=== PATIENT | male | born 1965 | race Two or more races ===

== ENCOUNTER 2021-03-31 20:16 | Inpatient (IN) | payer BC, OTHER ==
[~2021-03-31 20:16] MED LIST: LORazepam 2 MG TABLET PO SCH
[2021-03-31 22:04] VITALS: BMI 24.5
[2021-03-31] MEDS ORDERED: ACETAMINOPHEN 325 MG TABLET (FP) PO PRN (23:42)
[2021-03-31] MEDS ORDERED: MAGNESIUM CITRATE 300 ML BOTTLE PO PRN (23:42)
[2021-03-31] MEDS ORDERED: NICOTINE POLACRILEX 2 MG GUM BUC PRN (23:42)
[2021-03-31] MEDS ORDERED: MAGNESIUM HYDROX 2400MG/30ML ORAL SUSPENSION 30 ML CUP PO PRN (23:42)
[2021-03-31] MEDS ORDERED: ONDANSETRON *ODT* 4 MG TABLET SL PRN (23:42)
[2021-03-31] MEDS ORDERED: MENTHOL/PHENOL 1 EACH UD MM PRN (23:42)
[2021-03-31] MEDS ORDERED: BISMUTH SUBSALICYLATE 524 MG/30 ML PO PRN (23:42)
[2021-03-31] MEDS ORDERED: MAG HYDROX/AL HYDROX/SIMETH 30 ML UNIT-DOSE CUP PO PRN (23:42)
[2021-04-01] MEDS: LORazepam 1 MG TABLET PO PRN ×2 (01:01→13:41)
[2021-04-01] MEDS: IBUPROFEN 400 MG TABLET (FP) PO PRN ×2 (01:03→18:10)
[2021-04-01] MEDS: METHOCARBAMOL 500 MG TABLET PO PRN ×2 (01:47→11:18)
[2021-04-01] MEDS: LORazepam 1 MG TABLET PO SCH ×4 (06:21→22:16)
[2021-04-01] MEDS: hydrOXYzine PAMOATE 25 MG CAPSULE (FP) PO SCH ×5 (06:21→22:16)
[2021-04-01 10:25] LABS: HEMATOCRIT 29.1 % (35.4-49); HEMOGLOBIN 10.1 GM/dL (11.7-16.9); MCH 32.6 pg (25.7-33.7); MCHC 34.7 g/dl (32.0-35.9); MEAN PLT VOLUME 7.5 fl (7.5-11.1); PLATELET COUNT 266 K/MM3 (134-434); RBC 3.09 M/mm3 (4.00-5.60); WHITE BLOOD COUNT 6.7 K/mm3 (4.0-10.0)
[2021-04-01 10:34] LABS: ALBUMIN 3.5 g/dl (3.4-5.0); BLOOD UREA NITROGEN 8.9 mg/dL (7-18); CALCIUM 8.6 mg/dL (8.5-10.1)
[2021-04-01 10:37] LABS: CREATININE 0.7 mg/dL (0.55-1.3)
[2021-04-01 10:39] LABS: BILIRUBIN,TOTAL 0.4 mg/dL (0.2-1); TOT PROT 6.9 g/dl (6.4-8.2)
[2021-04-01] MEDS: ACETAMINOPHEN 325 MG TABLET (FP) PO PRN (11:17)
[2021-04-01] MEDS: PRENATAL VITAMINS W/ FOLIC ACID TABLET (FP) PO SCH (11:20)
[2021-04-01] MEDS: THIAMINE HCL 100 MG TABLET (FP) PO SCH (22:15)
[2021-04-01] MEDS: MELATONIN 5 MG TABLETS PO SCH (22:16)
[2021-04-02] MEDS ORDERED: LORazepam 0.5 MG TABLET PO PRN
[2021-04-02] MEDS: LORazepam 0.5 MG TABLET PO SCH ×4 (06:32→22:13)
[2021-04-02] MEDS: hydrOXYzine PAMOATE 25 MG CAPSULE (FP) PO SCH ×5 (06:32→22:13)
[2021-04-02] MEDS: IBUPROFEN 400 MG TABLET (FP) PO PRN ×3 (06:33→22:13)
[2021-04-02] MEDS: PRENATAL VITAMINS W/ FOLIC ACID TABLET (FP) PO SCH (10:31)
[2021-04-02] MEDS: METHOCARBAMOL 500 MG TABLET PO PRN (10:33)
[2021-04-02] MEDS: ACETAMINOPHEN 325 MG TABLET (FP) PO PRN (10:34)
[2021-04-02] MEDS: THIAMINE HCL 100 MG TABLET (FP) PO SCH (22:13)
[2021-04-02] MEDS: MELATONIN 5 MG TABLETS PO SCH (22:13)
[2021-04-03] MEDS ORDERED: LORazepam 0.5 MG TABLET PO ONE (05:00)
[2021-04-03] MEDS: hydrOXYzine PAMOATE 25 MG CAPSULE (FP) PO SCH (05:01)
[2021-04-03] MEDS: ACETAMINOPHEN 325 MG TABLET (FP) PO PRN (05:02)
[2021-04-03 06:44] VITALS: BP 146/70; PULSE 71; TEMP 98.4
== END 2021-04-03 10:15 | disposition home or self-care (01) | DRG 897 ==
LOC: YASAS 20:16 → Y6N 23:48
PROVIDERS: ADMIT Allergy & Immunology; ATTEND Allergy & Immunology
PROC: HZ2ZZZZ Detoxification Services for Substance Abuse Treatment (ICD-10-PCS; principal; 2021-03-31)
DX: F10.230 Alcohol dependence with withdrawal, uncomplicated (principal); G40.509 Epileptic seizures related to external causes, not intractable, without status epilepticus; F17.210 Nicotine dependence, cigarettes, uncomplicated; F31.9 Bipolar disorder, unspecified; F41.9 Anxiety disorder, unspecified; D50.9 Iron deficiency anemia, unspecified; I10 Essential (primary) hypertension; Z59.0 Homelessness; Z88.0 Allergy status to penicillin; S01.01XD Laceration without foreign body of scalp, subsequent encounter; V81.6 Occupant of railway train or railway vehicle injured by fall from railway train or railway vehicle
CPT/HCPCS: 36415; 80053; 85027; 86780; C9803; Q0162; U0003; U0005